=== PATIENT | female | born 1985 | race Caucasian/White ===

== ENCOUNTER 2023-02-16 18:10 | Inpatient (IN) | payer OTHER ==
[2023-02-16] MEDS ORDERED: Sodium Chloride 0.9% 10 ML Syringe FLUSH PRN (19:02)
[2023-02-16] MEDS ORDERED: Sodium Chloride 0.9% 2.5 ML Syringe FLUSH PRN (19:02)
[2023-02-16] MEDS ORDERED: Tranexamic Acid IN NACL,ISO-OS 1,000 MG in Premix Bag 1 BAG IV PRN ×2 (19:02)
[2023-02-16] MEDS ORDERED: Lidocaine 1% 50 ML MDV INJECT PRN (19:02)
[2023-02-16] MEDS ORDERED: Methylergonovine 0.2 MG/1 ML Amp IM PRN (19:02)
[2023-02-16] MEDS ORDERED: Water For Irrigation,Sterile 1,000 ML Container IRR PRN (19:02)
[2023-02-16] MEDS ORDERED: Misoprostol 200 MCG Tab PO PRN (19:02)
[2023-02-16] MEDS ORDERED: Ondansetron 4 MG/2 ML SDV IVPUSH PRN (19:02)
[2023-02-16] MEDS ORDERED: Carboprost Tromethamine 250 MCG/1 mL Vial IM PRN (19:02)
[2023-02-16] MEDS ORDERED: Oxytocin/0.9 % Sodium Chloride 30 UNIT/500 ML BAG IV SCH (19:15)
[2023-02-16] MEDS ORDERED: Lactated Ringers 1,000 ML IV SCH (19:15)
[2023-02-16 19:29] LABS: HEMOGLOBIN 13.8 g/dL (12.0-16.0); MEAN CORPUSCULAR HEMOGLOBIN 29.1 pg (28.0-32.0); MEAN CORPUSCULAR HGB CONC 34.5 g/dL (32.0-36.0); MEAN CORPUSCULAR VOLUME 84.4 fL (83.0-99.0); MEAN PLATELET VOLUME 10.7 fL (9.4-12.3); PLATELET COUNT,PLT 341 K/uL (150-400); RED BLOOD CELL COUNT 4.74 M/uL (4.10-5.30)
[2023-02-16] MEDS ORDERED: Penicillin G Potassium 5 MILLUNITS in Dextrose 5% in Water 100 ML IV ONE ×2 (19:30)
[2023-02-16] MEDS ORDERED: Ampicillin 2 GM in Sodium Chloride 0.9% 100 ML IV ONE (19:35)
[2023-02-16] MEDS ORDERED: Ampicillin 2 GM Vial ONE (19:35)
[2023-02-16] MEDS ORDERED: Sodium Chloride 0.9% 100 ML ONE (19:37)
[2023-02-16 19:50] LABS: A/G RATIO 0.6 (0.9-1.6); ALBUMIN 2.7 g/dL (3.4-5.0); BILIRUBIN TOTAL 0.2 mg/dL (0.2-1.0); CALCIUM 8.4 mg/dL (8.5-10.1); CARBON DIOXIDE,CO2 19.3 mmol/L (21.0-32.0); CREATININE 0.8 mg/dL (0.6-1.0); EST CRCL DRUG DOSING (CG) 91.01 mL/min; POTASSIUM,K 4.1 mmol/L (3.5-5.1); PROTEIN TOTAL,TP 7.3 g/dL (6.4-8.2)
[2023-02-16] MEDS ORDERED: Bisacodyl 10 MG Supp RECTAL PRN (20:21)
[2023-02-16] MEDS ORDERED: Benzocaine/Menthol 20%-0.5% Spray 78 GM Cannister TOP PRN (20:21)
[2023-02-16] MEDS ORDERED: Lanolin 100% Cream 7 GM Tube TOP PRN (20:21)
[2023-02-16] MEDS ORDERED: Simethicone 80 MG Tab.Chew PO PRN (20:21)
[2023-02-16] MEDS ORDERED: Temazepam 15 MG Cap PO PRN (20:21)
[2023-02-16] MEDS ORDERED: Ibuprofen 400 MG Tab PO PRN (20:21)
[2023-02-16] MEDS ORDERED: Ibuprofen 800 MG Tab PO PRN (20:21)
[2023-02-16] MEDS ORDERED: Witch Hazel Medicated Pads 40/Jar TOP PRN (20:21)
[2023-02-16] MEDS ORDERED: Docusate Sodium 100 MG Cap PO PRN (20:21)
[2023-02-16] MEDS ORDERED: Acetaminophen 500 MG Tab PO PRN (20:21)
[2023-02-16] MEDS ORDERED: Penicillin G Potassium 2.5 MILLUNITS in Dextrose 5% in Water 100 ML IV SCH ×2 (23:30)
[2023-02-16] MEDS ORDERED: Ampicillin 1 GM in Sodium Chloride 0.9% 50 ML IV SCH (23:59)
[2023-02-17 06:18] LABS: BASOPHILS ABSOLUTE AUTO 0.05 K/uL (0.00-0.20); BASOPHILS PERCENT AUTO 0.4 % (0.0-1.0); EOSINOPHILS ABSOLUTE AUTO 0.22 K/uL (0.00-0.45); HEMATOCRIT 37.2 % (37.0-47.0); HEMOGLOBIN 12.8 g/dL (12.0-16.0); IMMATURE GRAN ABSOLUTE AUTO 0.04 K/uL (0.00-0.05); IMMATURE GRAN PERCENT AUTO 0.4 % (0.0-0.4); LYMPHOCYTES ABSOLUTE AUTO 3.08 K/uL (1.00-4.80); LYMPHOCYTES PERCENT AUTO 27.4 % (24.0-44.0); MEAN CORPUSCULAR HEMOGLOBIN 29.3 pg (28.0-32.0); MEAN CORPUSCULAR HGB CONC 34.4 g/dL (32.0-36.0); MEAN CORPUSCULAR VOLUME 85.1 fL (83.0-99.0); MEAN PLATELET VOLUME 10.9 fL (9.4-12.3); MONOCYTES ABSOLUTE AUTO 0.79 K/uL (0.00-0.80); NEUTROPHILS ABSOLUTE AUTO 7.05 K/uL (1.80-7.70); NEUTROPHILS PERCENT AUTO 62.8 % (41.0-71.0); PLATELET COUNT,PLT 275 K/uL (150-400); RED BLOOD CELL COUNT 4.37 M/uL (4.10-5.30); WHITE BLOOD CELL COUNT,WBC 11.23 K/uL (3.9-11.3)
[2023-02-17] MEDS: Acetaminophen 500 MG Tab PO PRN ×2 (15:08→23:13)
[2023-02-17] MEDS: VALACYCLOVIR 1000 MG PO SCH (18:37)
[2023-02-18] MEDS: VALACYCLOVIR 1000 MG PO SCH (11:49)
== END 2023-02-18 19:00 | disposition home or self-care (01) | DRG 805 ==
LOC: MW.OB 18:10 → MW.OBCHECK 18:10 → MW.OB 19:02 → OBSVTOIN 19:50 → MW.OBCHECK 19:56 → MW.OB 23:40
PROVIDERS: ADMIT Obstetrics & Gynecology; ATTEND Obstetrics & Gynecology
PROC: 10E0XZZ Delivery of Products of Conception, External Approach (ICD-10-PCS; principal; 2023-02-16)
DX: O62.3 Precipitate labor (principal); Z3A.36 36 weeks gestation of pregnancy; Z37.0 Single live birth; O60.14X0 Preterm labor third trimester with preterm delivery third trimester, not applicable or unspecified; O98.32 Other infections with a predominantly sexual mode of transmission complicating childbirth; O99.824 Streptococcus B carrier state complicating childbirth; O24.424 Gestational diabetes mellitus in childbirth, insulin controlled; A60.09 Herpesviral infection of other urogenital tract; O99.334 Smoking (tobacco) complicating childbirth
CPT/HCPCS: 36415; 59025; 59409; 80053; 82947; 85025; 85027; 86592; 86850; 86900; 86901; A9270-GY; J0290; J2590; J3490; J7120